=== PATIENT | female | born 2000 | race African-American/Black ===

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

== ENCOUNTER 2019-09-02 12:26 | Emergency (ER) | payer OTHER ==
[~2019-09-02] VITALS: Ht 149.9 cm; Wt 59.1 kg
[2019-09-02 17:00] VITALS: BP 125/79
[2019-09-04 02:07] LABS: HSV 1 TYPE SPECIFIC IGG <0.91 index (0.00-0.90)
== END 2019-09-02 17:09 | disposition home or self-care (01) ==
LOC: EMS 12:27
DX: B00.9 Herpesviral infection, unspecified (principal); F12.90 Cannabis use, unspecified, uncomplicated
CPT/HCPCS: 86695; 86696